=== PATIENT | male | born 1950 | race Caucasian/White ===

== ENCOUNTER → 2016-07-22 | Outpatient (CLI) | payer BC ==
[~2016-07-22] MED LIST: ALLO300T2 PO; ASPI81TA28 PO; BNC/40 PO; BUSP5TAB59 PO; CHOL100010 PO; CHOL200010 PO; CODCAP4 PO; CYAN100020 PO; CYAN10004 PO; FLUO10CA48 PO; FLUT0.0529 NAE; GABA-113 PO; GINKOBA PO; GLC/500 PO; GLUC15002 PO; GLUCTAB7 PO; HMLI SC; HYDR-5688 PO; HYDR12.55 PO; HYDR25TA4 PO; INSUINJ12 SC; IRBE1TAB48 PO; LEVO200T6 PO; LEVO50TA6 PO; LIRA18IN SC; LIRA18IN SQ; LVMI SC; MAGN400T6 PO; MISC1CAP60 PO; MULT-1027 PO; MULTTAB58 PO; NVLGI/PEN SC; OMEP40CA PO; OMEP40CA41 PO; ONDA8TAB7 PO; RANI300T PO; S AD PO; SIMV20TA2 PO; VGR50 PO; VITA1CAP PO; VITA400C3 PO; [UNRECOGNIZED DRUG - CODE] PO
[2016-07-22 12:34] LABS: URINE APPEARANCE CLEAR (CLEAR); URINE BILIRUBIN NEG (NEG); URINE COLOR YELLOW; URINE EPITHELIAL CELL AUTO 0-5 /lpf (0-5); URINE NITRITE NEG (NEG); URINE SPECIFIC GRAVITY 1.019 (1.000-1.030); UROBILINOGEN NEG (NEG); ZZUR CULT IF INDIC CLEAN CATCH NO
[2016-07-22 12:40] LABS: BLOOD UREA NITROGEN 29 mg/dl (7-18); BUN/CREATININE RATIO 20.5 (10-20); CALCIUM 9.2 mg/dl (8.5-10.1); CARBON DIOXIDE 25 mmol/L (21-32); CHLORIDE 104 mmol/L (98-107); GLUCOSE 167 mg/dl (70-99); POTASSIUM 4.3 mmol/L (3.5-5.1); SODIUM 139 mmol/L (136-145)
[2016-07-22 12:44] LABS: MANUAL MICROSCOPIC REQUIRED? NO; REVIEW REQ? NO
[2016-07-22 12:45] LABS: CHOLESTEROL 160 mg/dl (0-200); CHOLESTEROL/HDL RATIO 3.4; HDL CHOLESTEROL 47 mg/dl; LDL CHOLESTEROL CALCULATED 76 mg/dl; TRIGLYCERIDES 184 mg/dl (0-150); VERY LOW DENSITY LIPOPROT CALC 37 mg/dl
[2016-07-22 12:54] LABS: ESTIMATED AVERAGE GLUCOSE 174 mg/dl; HA1C FLAG Normal (Normal)
== END | disposition home or self-care (01) ==
LOC: C.LABBFT 08:38
PROVIDERS: ATTEND Internal Medicine
DX: E11.9 Type 2 diabetes mellitus without complications (principal); E55.9 Vitamin D deficiency, unspecified

== ENCOUNTER → 2016-09-27 | Outpatient (CLI) | payer BC ==
[~2016-09-27] MED LIST changes: -CHOL200010 PO; +CODCAP PO; -CODCAP4 PO; -CYAN100020 PO; -FLUO10CA48 PO; -GINKOBA PO; -GLUCTAB7 PO; -HYDR25TA4 PO; -IRBE1TAB48 PO; -LEVO200T6 PO; -LIRA18IN SC; -LVMI SC; -MAGN400T6 PO; -MISC1CAP60 PO; -MULT-1027 PO; -NVLGI/PEN SC; -OMEP40CA41 PO; -S AD PO; -[UNRECOGNIZED DRUG - CODE] PO
[2016-09-27 13:10] LABS: THYROID STIMULATING HORMONE 3.63 uIu/ml (0.300-4.500)
== END | disposition home or self-care (01) ==
LOC: C.LABBFT 09:44
PROVIDERS: ATTEND Internal Medicine Endocrinology, Diabetes & Metabolism
DX: E03.9 Hypothyroidism, unspecified (principal)

== ENCOUNTER → 2016-11-29 | Outpatient (CLI) | payer BC ==
[~2016-11-29] MED LIST changes: +CHOL200010 PO; -CODCAP PO; +CODCAP4 PO; +CYAN100020 PO; +FLUO10CA48 PO; +GINKOBA PO; +GLUCTAB7 PO; +HYDR25TA4 PO; +IRBE1TAB48 PO; +LEVO200T6 PO; +LIRA18IN SC; +LVMI SC; +MAGN400T6 PO; +MISC1CAP60 PO; +MULT-1027 PO; +NVLGI/PEN SC; +OMEP40CA41 PO; +S AD PO; +[UNRECOGNIZED DRUG - CODE] PO
[2016-11-29 12:35] LABS: THYROID STIMULATING HORMONE 0.56 uIu/ml (0.300-4.500)
== END | disposition home or self-care (01) ==
LOC: C.LABBFT 09:16
PROVIDERS: ATTEND Internal Medicine Endocrinology, Diabetes & Metabolism
DX: E03.9 Hypothyroidism, unspecified (principal)

== ENCOUNTER → 2016-12-14 | Outpatient (CLI) | payer BC | END | disposition home or self-care (01) | LOC: C.CPL 14:42 | PROVIDERS: ATTEND Surgery | DX: Z01.812 Encounter for preprocedural laboratory examination (principal); C85.80 Other specified types of non-Hodgkin lymphoma, unspecified site ==

== ENCOUNTER → 2016-12-15 | Outpatient (CLI) | payer BC ==
[2016-12-15 12:25] LABS: BASO % 0.6 %; BASO ABS # 0.03 K/uL (0-0.2); COMPLETE YES; EOS % 3.7 %; HEMATOCRIT 36.6 % (42-52); IG% 0.2 %; LYMPH % 18.3 %; LYMPH ABS # 0.99 K/uL (1.2-3.4); MEAN CELL VOLUME 98.9 fL (80-100); MEAN CORPUSCULAR HEMOGLOBIN 32.2 pg (25-34); MEAN CORPUSCULAR HGB CONC 32.5 g/dl (32-36); MEAN PLATELET VOLUME 9.9 fL (7.4-10.4); MONO % 8.9 %; NEUT % 68.3 %; PLATELET COUNT 190 K/uL (130-400); WHITE BLOOD COUNT 5.41 K/uL (4.8-10.8)
[2016-12-15 12:31] LABS: ALT/SGPT 58 U/L (12-78); AST/SGOT 48 U/L (15-37); BLOOD UREA NITROGEN 28 mg/dl (7-18); CARBON DIOXIDE 25 mmol/L (21-32); CHLORIDE 105 mmol/L (98-107); GLUCOSE 160 mg/dl (70-99); POTASSIUM 4.3 mmol/L (3.5-5.1); SODIUM 140 mmol/L (136-145)
[2016-12-15 12:32] LABS: ALB/GLOB RATIO 0.8 (0.9-2); ALKALINE PHOSPHATASE 72 U/L (45-117)
[2016-12-15 12:40] LABS: CALCIUM 9.3 mg/dl (8.5-10.1)
[2016-12-15 12:41] LABS: ESTIMATED AVERAGE GLUCOSE 183 mg/dl; HA1C FLAG Normal (Normal)
== END | disposition home or self-care (01) ==
LOC: C.LABBFT 08:43
PROVIDERS: ATTEND Internal Medicine
DX: E11.9 Type 2 diabetes mellitus without complications (principal); E55.9 Vitamin D deficiency, unspecified

== ENCOUNTER → 2016-12-16 | Outpatient (CLI) | payer BC ==
[2016-12-16 17:39] LABS: FERRITIN 68.4 ng/ml (8.0-388.0)
== END | disposition home or self-care (01) ==
LOC: C.LABBFT 15:20
PROVIDERS: ATTEND Internal Medicine
DX: D64.9 Anemia, unspecified (principal)

== ENCOUNTER → 2016-12-29 | Day surgery (SDC) | payer BC ==
[2016-12-17 08:31] VITALS: BMI 41.0
[~2016-12-29] VITALS: Ht 185.4 cm; Wt 143.6 kg
[~2016-12-29] MED LIST changes: +ATROPINE SULFATE 0.1 MG/ML 5ML SYR IV PRN; +CEFAZOLIN 3000 MG/65 ML D5W IV SCH; +CEFAZOLIN SOD 1 GM VIAL ONE; -CYAN10004 PO; +EpHEDrine SULFATE INJ 50 MG/ML AMP IV PRN; +FENTANYL CITRATE INJ 50 MCG/1 ML 2 ML VIAL ONE; -GLUC15002 PO; +HEPARIN SOD (PORCINE) 1000 UNIT/ML 10 ML VIAL ONE; +HYDROCODONE/ACETAMOPHEN 5/325MG TAB PO PRN; +LACTATED RINGER'S 1000ML 1,000 ML IV SCH; +LIDOCAINE HCL 1% 20 ML VIAL ONE; +MIDAZOLAM HCL 1 MG/ML 2ML VIAL ONE; -ONDA8TAB7 PO; +ONDANSETRON INJ 2 MG/ML 2 ML VIAL IV PRN; +PROPOFOL IV EMULSION 10 MG/ML 20 ML VIAL IV ONE; -RANI300T PO; +THROMBIN FOR SOLN 20000 UNIT KIT ONE; -VGR50 PO; -VITA1CAP PO
[2016-12-29 07:19] VITALS: BP 142/70; PULSE 71; TEMP 36.5; O2SAT 92; Ht 185.4 cm; Wt 143.6 kg
--- NOTE | 2016-12-29 08:57 | History & Physical Bridge Note ---
H&P Re-Evaluation Bridge Note: I have examined the patient, reviewed the History & Physical and in the interval since the performance of the History & Physical I have noted the following changes of clinical significance: No changes noted
--- NOTE | 2016-12-29 09:38 | [facility] Post Operative Brief Note ---
Immediate Operative Summary Operative Date Dec 29, 2016. Pre-Operative Diagnosis Indwelling Infusaport Post-Operative Diagnosis Indwelling infusaport Procedure(s) Performed Removal of A port Surgeon Dr. De Oliveira Oceanographer Assistant Surgeon(s) none Estimated Blood Loss 5 cc Findings port Specimens A: explanted A port Anesthesia local/ sedation Complication(s) None Disposition Recovery Room / PACU
--- NOTE | 2016-12-29 09:43 | Discharge Instructions ---
Discharge Instructions Date of Service Dec 29, 2016. Visit Reason for Visit: Port-A-Cath In Place, Diabetes Discharge Discharge Diagnosis / Problem: port in place Discharge Goals Goal(s): Decrease discomfort, Improve function, Improve disease control Activity Recommendations Activity Limitations: as noted below Lifting Limitations: no more than 25 pounds Exercise/Sports Limitations: until after follow-up appointment May Resume Sexual Activity: when tolerated Shower/Bathe: tomorrow Driving or Machine Use: resume 1 day after discharge SPECIAL CARE INSTRUCTIONS: * Cover incisions and change daily for comfort/drainage. * May use ibuprofen for pain as tolerated. * Expect some swelling and bruising. Call your doctor if: * Temperature above 101 degrees * Pain not relieved by pain medicine ordered * There is increased drainage or redness from any incision * You have any unanswered questions or concerns [phone]. FOLLOW UP VISIT: If not already scheduled, please call the office for a follow-up visit. for 2 weeks- suture removal OFFICE PHONE NUMBER: Dr. De Oliveira Office Anesthesia . Post Anesthesia Instructions: If you have had General Anesthesia or IV Sedation: * Do not drive today. * Resume driving when surgeon permits. * Do not make important decisions or sign legal documents today. * Call surgeon for: 1. Temperature elevations greater than 101 degrees F. 2. Uncontrollable pain. 3. Excessive bleeding. 4. Persistent nausea and vomiting. 5. Medication intolerance (nausea, vomiting or rash). * For nausea and vomiting use only clear liquids such as: tea, soda, bouillon until nausea subsides, then gradually increase diet as tolerated. * If you have any concerns or questions, call your surgeon's office. If physician is unavailable and it is an emergency, call 911 or go to the nearest emergency room. . Diet Recommendations Recommended Home Diet: resume previous diet Procedures Procedures Performed: Removal of A port Pending Studies Studies pending at discharge: no Medical Emergencies . Who to Call and When: Medical Emergencies: If at any time you feel your situation is an emergency, please call 911 immediately. . Non-Emergent Contact Non-Emergency issues call your: Primary Care Provider, Surgeon . . "Provider Documentation" section prepared by Jerzy De Oliveira. .
--- NOTE | 2016-12-29 09:44 | Anesthesiology Progress Note ---
Anesthesia Post Op Note Date & Time Dec 29, 2016 at 09:44 Vital Signs Pain Intensity: 0 Vital Signs Past 12 Hours Date Time Temp Pulse Resp B/P (MAP) Pulse Ox O2 Delivery O2 Flow Rate FiO2 12/29/16 07:19 36.5 71 20 142/70 (94) 92 Room Air Notes Mental Status: alert / awake / arousable, participated in evaluation Pt Amnestic to Procedure: Yes Nausea / Vomiting: adequately controlled Pain: adequately controlled Airway Patency, RR, SpO2: stable & adequate BP & HR: stable & adequate Hydration State: stable & adequate Anesthetic Complications: no major complications apparent
[2016-12-29 10:00] VITALS: BP 139/67; PULSE 70; TEMP 36.8; O2SAT 98
--- NOTE | 2016-12-29 10:13 | OPERATIVE REPORT ---
DATE OF OPERATION: 12/29/2016 PREOPERATIVE DIAGNOSIS: Port in place. POSTOPERATIVE DIAGNOSIS: Same. NAME OF OPERATION: Port removal. STAFF SURGEON: Dr. De Oliveira. ANESTHESIA: Local with sedation with 1% plain lidocaine. PROCEDURE: The patient was brought in the operating room and placed on the operating table in supine position. His left chest was prepped and draped in usual fashion. 1% plain lidocaine was used to anesthetize the skin and subcutaneous tissue. Incision made carrying dissection down identifying the port, dissecting it from surrounding tissue, removing the catheter, oversewing the tunnel using 2-0 chromic catgut suture. Deep tissue and subcutaneous tissue reapproximated using interrupted 2-0 plain catgut suture then the skin reapproximated using 4-0 nylon suture. The patient was transferred to recovery room in stable condition. I attest to the content of the Intraoperative Record and any orders documented therein. Any exception s are noted below.
[2016-12-29 10:30] VITALS: BP 135/67; PULSE 72; TEMP 36.8; O2SAT 98
== END | disposition home or self-care (01) ==
LOC: C.ACU 06:54
PROVIDERS: ATTEND Surgery
DX: Z45.2 Encounter for adjustment and management of vascular access device (principal); E11.22 Type 2 diabetes mellitus with diabetic chronic kidney disease; I12.9 Hypertensive chronic kidney disease with stage 1 through stage 4 chronic kidney disease, or unspecified chronic kidney disease; G47.33 Obstructive sleep apnea (adult) (pediatric); M19.90 Unspecified osteoarthritis, unspecified site; E66.01 Morbid (severe) obesity due to excess calories; Z68.41 Body mass index [BMI] 40.0-44.9, adult; E78.5 Hyperlipidemia, unspecified; Z98.890 Other specified postprocedural states; Z79.4 Long term (current) use of insulin; Z79.899 Other long term (current) drug therapy; Z82.49 Family history of ischemic heart disease and other diseases of the circulatory system; Z83.3 Family history of diabetes mellitus; Z81.8 Family history of other mental and behavioral disorders; N18.9 Chronic kidney disease, unspecified

== ENCOUNTER → 2017-02-23 | Outpatient (CLI) | payer BC ==
[~2017-02-23] MED LIST changes: -ATROPINE SULFATE 0.1 MG/ML 5ML SYR IV PRN; -CEFAZOLIN 3000 MG/65 ML D5W IV SCH; -CEFAZOLIN SOD 1 GM VIAL ONE; -CHOL200010 PO; +CODCAP PO; -CODCAP4 PO; -CYAN100020 PO; -EpHEDrine SULFATE INJ 50 MG/ML AMP IV PRN; -FENTANYL CITRATE INJ 50 MCG/1 ML 2 ML VIAL ONE; -FLUO10CA48 PO; -GINKOBA PO; -GLUCTAB7 PO; -HEPARIN SOD (PORCINE) 1000 UNIT/ML 10 ML VIAL ONE; -HYDR25TA4 PO; -HYDROCODONE/ACETAMOPHEN 5/325MG TAB PO PRN; -IRBE1TAB48 PO; -LACTATED RINGER'S 1000ML 1,000 ML IV SCH; -LEVO200T6 PO; -LIDOCAINE HCL 1% 20 ML VIAL ONE; -LIRA18IN SC; -LVMI SC; -MAGN400T6 PO; -MIDAZOLAM HCL 1 MG/ML 2ML VIAL ONE; -MISC1CAP60 PO; -MULT-1027 PO; -NVLGI/PEN SC; -OMEP40CA41 PO; -ONDANSETRON INJ 2 MG/ML 2 ML VIAL IV PRN; -PROPOFOL IV EMULSION 10 MG/ML 20 ML VIAL IV ONE; -S AD PO; -THROMBIN FOR SOLN 20000 UNIT KIT ONE; -[UNRECOGNIZED DRUG - CODE] PO
--- NOTE | 2017-02-23 08:58 | DIAGNOSTIC IMAGING REPORT ---
THYROID ULTRASOUND HISTORY: Thyroid nodule. E11.65 Diabetes mellitus type 2, [id number] COMPARISON: Thyroid ultrasound 03/16/2016. FINDINGS: Right lobe: 4.1 x 2.0 x 1.9 cm. No nodules. The gland is diffusely heterogeneous. Left lobe: 3.8 x 2.7 1.5 cm. No definite nodules identified. The gland is diffusely heterogeneous. Isthmus: 4 mm in thickness. No nodules. IMPRESSION: Diffusely heterogeneous thyroid gland with no definite nodules identified. Electronically signed by: Lucas Montez M.D. 02/23/2017 8:56 AM Dictated Date/Time: 02/23/2017 8:54 AM
== END | disposition home or self-care (01) ==
LOC: C.ULTR 07:45
PROVIDERS: ATTEND Internal Medicine Endocrinology, Diabetes & Metabolism
DX: E11.65 Type 2 diabetes mellitus with hyperglycemia (principal); E07.9 Disorder of thyroid, unspecified

== ENCOUNTER → 2017-04-11 | Outpatient (CLI) | payer BC ==
[2017-04-11 12:24] LABS: BASO % 0.5 %; BASO ABS # 0.03 K/uL (0-0.2); COMPLETE YES; EOS % 2.6 %; HEMATOCRIT 35.2 % (42-52); IG% 0.2 %; LYMPH % 15.7 %; LYMPH ABS # 0.97 K/uL (1.2-3.4); MEAN CELL VOLUME 98.3 fL (80-100); MEAN CORPUSCULAR HEMOGLOBIN 32.7 pg (25-34); MEAN CORPUSCULAR HGB CONC 33.2 g/dl (32-36); MEAN PLATELET VOLUME 10.1 fL (7.4-10.4); MONO % 11.9 %; NEUT % 69.1 %; PLATELET COUNT 169 K/uL (130-400); RED BLOOD COUNT 3.58 M/uL (4.7-6.1); WHITE BLOOD COUNT 6.16 K/uL (4.8-10.8)
[2017-04-11 12:31] LABS: ALT/SGPT 57 U/L (12-78); BLOOD UREA NITROGEN 31 mg/dl (7-18); BUN/CREATININE RATIO 23.8 (10-20); CALCIUM 9.9 mg/dl (8.5-10.1); CARBON DIOXIDE 26 mmol/L (21-32); CHLORIDE 103 mmol/L (98-107); GLUCOSE 114 mg/dl (70-99); POTASSIUM 4.8 mmol/L (3.5-5.1); SODIUM 138 mmol/L (136-145)
[2017-04-11 12:33] LABS: ALKALINE PHOSPHATASE 69 U/L (45-117); AST/SGOT 46 U/L (15-37)
[2017-04-11 12:39] LABS: ESTIMATED AVERAGE GLUCOSE 146 mg/dl; HA1C FLAG Normal (Normal)
== END | disposition home or self-care (01) ==
LOC: C.LABBFT 08:16
PROVIDERS: ATTEND Internal Medicine
DX: E11.9 Type 2 diabetes mellitus without complications (principal); D64.9 Anemia, unspecified

== ENCOUNTER → 2017-04-19 | Outpatient (CLI) | payer BC ==
[2017-04-19 17:56] LABS: MAGNESIUM 1.8 mg/dl (1.8-2.4); URIC ACID 5.9 mg/dl (2.6-7.2)
== END | disposition home or self-care (01) ==
LOC: C.LABBFT 14:21
PROVIDERS: ATTEND Internal Medicine
DX: C85.80 Other specified types of non-Hodgkin lymphoma, unspecified site (principal); M10.9 Gout, unspecified

== ENCOUNTER → 2017-04-27 | Outpatient (CLI) | payer BC ==
[~2017-04-27] MED LIST changes: +OPTIRAY 320 IV PRN
--- NOTE | 2017-04-27 12:11 | DIAGNOSTIC IMAGING REPORT ---
CHEST CT WITH CONTRAST CT DOSE: HISTORY: NON HODGKINS LYMPHOMA TECHNIQUE: Multiaxial CT images of the chest were performed following the intravenous administration of contrast. A dose lowering technique was utilized adhering to the principles of ALARA. COMPARISON: Chest CT 12/28/2014. FINDINGS: There is a 1.8 cm diverticulum along the right side of the proximal esophagus. The central airways are patent. No pneumothorax. No pleural effusions. No focal lung consolidations. A 7 mm subpleural nodule within the right lower lobe abutting the major fissure on image 29. This was likely present on the prior study but was partially obscured by the motion artifact. This appears stable and is therefore considered to be benign. There is also stable 2 mm pulmonary nodule within the right upper lobe on image 32 compared to a 2014 PET/CT. No new or suspicious pulmonary nodules. No suspicious lytic or blastic osseous lesions. A few stable subcentimeter mediastinal lymph nodes. These do not meet CT criteria for pathologic involvement. No hilar or axillary lymphadenopathy. Subcentimeter right cardiophrenic angle lymph nodes are also stable. Normal caliber thoracic aorta. The main pulmonary arteries are patent. The heart remains mildly enlarged. IMPRESSION: No significant change compared to the prior studies. No lymphadenopathy identified within the chest. Electronically signed by: Lucas Montez M.D. 04/27/2017 12:10 PM Dictated Date/Time: 04/27/2017 12:03 PM
--- NOTE | 2017-04-27 12:14 | DIAGNOSTIC IMAGING REPORT ---
CT SCAN OF THE NECK WITH IV CONTRAST CLINICAL HISTORY: Lymphoma. COMPARISON STUDY: CT scan of the neck dated 04/28/2013. PET/CT dated 06/03/2014. TECHNIQUE: Following the IV administration of 93 cc of Optiray 320, CT scan of the soft tissues of the neck was performed from the skull base to the upper chest. Images are reviewed in the axial, sagittal, and coronal planes. IV contrast was administered without complication. A dose lowering technique was utilized adhering to the principles of ALARA. FINDINGS: Pharynx: The nasopharynx, oropharynx, and laryngeal pharynx are normal in appearance. The pharyngeal airway is widely patent. There is no evidence of mass lesion. The vocal cords are symmetric. The parapharyngeal fat is well maintained. The prevertebral/retropharyngeal soft tissues are within normal limits. Lymphadenopathy: No cervical lymphadenopathy is seen Thyroid: Normal in size and attenuation. Salivary glands: The parotid and submandibular glands are within normal limits. Brain parenchyma: The visualized brain parenchyma at the skull base is normal in appearance. Vascular structures: There is atherosclerotic calcification of the carotid bulbs. The carotid arteries and the jugular veins are widely patent. Skeletal structures: The skeletal structures are osteopenic. Imaged portions of the calvarium at the skull base are within normal limits. Moderate multilevel cervical spondylosis is observed. The cervical spine appears intact. Sinuses and mastoids: The visualized paranasal sinuses are clear. The mastoid air cells are well pneumatized. Orbits: The bony orbits are intact. Orbital contents are normal in appearance. Lung apices: Visualized apical lung parenchyma is clear. IMPRESSION: No cervical lymphadenopathy is identified. Electronically signed by: Randy Brown M.D. 04/27/2017 12:13 PM Dictated Date/Time: 04/27/2017 12:09 PM
--- NOTE | 2017-04-27 12:18 | DIAGNOSTIC IMAGING REPORT ---
ABD/PELVIS IV AND ORAL CONT CLINICAL HISTORY: 66 years-old Male presenting with NON HODGKINS LYMPHOMA. TECHNIQUE: Multidetector CT of the abdomen and pelvis was performed after the administration of oral and intravenous contrast. IV contrast: 93 mL of Optiray 320. A dose lowering technique was used consistent with the principles of ALARA (as low as reasonably achievable). COMPARISON: PET/CT from 04/02/2013. CT DOSE (mGy.cm): The estimated cumulative dose is 3152.63 mGy.cm. FINDINGS: Expenditure Requisition Clerk topogram: Unremarkable. Lung bases: Minimal dependent changes likely atelectasis. Mild multichamber enlargement of the heart. Coronary artery and aortic valve calcification. No pericardial or pleural effusion. Prominent pericardial lymph node at the right cardiophrenic angle. Liver: Normal morphology. No liver lesion. Patent hepatic vasculature. Biliary: No intrahepatic or extrahepatic biliary ductal dilatation. Normal gallbladder. Pancreas: Moderate parenchymal atrophy. Spleen: Mildly enlarged measuring 15.2 cm in maximal sagittal dimension. This is new since 2012. Adrenal glands: Normal. Kidneys and ureters: Normal. No hydronephrosis. Bladder: Incompletely evaluated secondary to underdistention. Pelvic organs: Prostate and seminal vesicles normal. Bowel: Limited diverticulosis of the sigmoid colon. Mild stool burden. Normal appendix. No bowel obstruction. No bowel wall thickening. Peritoneal cavity: No free fluid or intraperitoneal gas. Lymph nodes: No pathologically enlarged lymph nodes in the abdomen or pelvis. Vasculature: Atherosclerosis of the normal caliber abdominal aorta. IVC patent. Abdominal wall: Normal. Musculoskeletal: Degenerative changes of the spine. Possible old right anterior through eighth rib fracture. No destructive osseous lesion. IMPRESSION: 1. No intra-abdominal lymphadenopathy. Mild splenomegaly is new since 2012. No other evidence of disease in the abdomen or pelvis. Electronically signed by: Henri Adam M.D. 04/27/2017 12:17 PM Dictated Date/Time: 04/27/2017 12:10 PM
== END | disposition home or self-care (01) ==
LOC: C.CTS 11:20
PROVIDERS: ATTEND Nurse Practitioner Family
DX: C83.31 Diffuse large B-cell lymphoma, lymph nodes of head, face, and neck (principal)

== ENCOUNTER → 2017-06-03 | Outpatient (CLI) | payer BC ==
[~2017-06-03] MED LIST changes: -BNC/40 PO; -BUSP5TAB59 PO; -CHOL100010 PO; +CHOL200010 PO; -CODCAP PO; +CODCAP4 PO; +CYAN100020 PO; +FLUO10CA48 PO; -FLUT0.0529 NAE; +GINKOBA PO; +GLUCTAB7 PO; -HMLI SC; -HYDR12.55 PO; +HYDR25TA4 PO; -INSUINJ12 SC; +IRBE1TAB48 PO; +LEVO200T6 PO; +LIRA18IN SC; -LIRA18IN SQ; +LVMI SC; +MAGN400T6 PO; +MISC1CAP60 PO; +MULT-1027 PO; -MULTTAB58 PO; +NVLGI/PEN SC; -OMEP40CA PO; +OMEP40CA41 PO; -OPTIRAY 320 IV PRN; +S AD PO; +[UNRECOGNIZED DRUG - CODE] PO
[2017-06-03 12:33] LABS: THYROID STIMULATING HORMONE 0.188 uIu/ml (0.300-4.500)
== END | disposition home or self-care (01) ==
LOC: C.LABBFT 09:45
PROVIDERS: ATTEND Nurse Practitioner
DX: E03.9 Hypothyroidism, unspecified (principal)

== ENCOUNTER → 2017-06-15 | Day surgery (SDC) | payer BC ==
[2017-06-02 11:56] VITALS: BMI 40.0
[~2017-06-15] VITALS: Ht 185.4 cm; Wt 140.0 kg
[~2017-06-15] MED LIST changes: +FENTANYL CITRATE INJ 50 MCG/1 ML 2 ML VIAL ONE; +LIDOCAINE HCL 2% 2 ML VIAL (20MG/ML) ONE; +PROPOFOL IV EMULSION 10 MG/ML 20 ML VIAL IV ONE; +SODIUM CHLORIDE 0.9% 500ML 500 ML IV ONE
[2017-06-15 08:35] VITALS: Ht 185.4 cm; Wt 140.0 kg
--- NOTE | 2017-06-15 08:49 | Endo History and Physical ---
History & Physical Date of Service: Jun 15, 2017. Chief Complaint: DYSPHAGIA Referring Physician: DR. TOMLIN History of Present Illness 66 yo CM who presents for EGD secondary to dysphagia. Past Medical History Diabetes, Arthritis, Anxiety, Reflux, Sleep Apnea, Hypertension, Thyroid Disease Past Surgical History Hx Cardiac Surgery: No Hx Internal Defibrillator: No Hx Pacemaker: No Hx Abdominal Surgery: No Hx of Implantable Prosthesis: No Hx Post-Op Nausea and Vomiting: No Hx Cancer Surgery: Yes (FACE SKIN EXICISION) Hx Thoracic Surgery: No Hx Orthopedic: Yes (RT/LEFT KNEE SX, RT ARM MUSCLE REPAIR) Hx Urinary Tract Surgery: No Family History None Social History Smoking Status: Never Smoker Hx Substance Use: No Hx Alcohol Use: No Allergies Coded Allergies: Niacin (Verified Allergy, Unknown, ULCERS, 06/15/17) Current Medications Reported Home Medications Medications Dose Route/Sig Max Daily Dose Days Date Category Dose Instructions Vitamin D (Cholecalciferol) 2,000 Unit Cap 2 Cap PO DAILY 06/02/17 Reported Zocor (Simvastatin) 20 Mg Tab 20 Mg PO QPM 06/02/17 Reported [place] (Misc Natural Products) 1 Cap Cap 1 Cap PO DAILY 06/02/17 Reported Junior-E (S-Adenosylmethionine) 200 Mg Tab 4 Tab PO DAILY 06/02/17 Reported Prilosec (Omeprazole) 40 Mg Cap 40 Mg PO QAM 06/02/17 Reported Novolog Flexpen (Insulin Aspart) 100 Units/Ml Inj 1 Dose SC TID 06/02/17 Reported PER SLIDING SCALE. Multi Vitamin (Multiple Vitamin) 1 Tab Tab 1 Tab PO DAILY 06/02/17 Reported Glucophage (Metformin Hcl) 500 Mg Tab 2 Tab PO BID 06/02/17 Reported Mag-Ox (Magnesium Oxide) 400 Mg Tab 2 Cap PO DAILY 06/02/17 Reported Levothyroxine Sodium 200 Mcg Tab 1 Tab PO QAM 06/02/17 Reported Levothyroxine Sodium 50 Mcg Tab 1 Tab PO QAM 06/02/17 Reported Levemir (Insulin Detemir) 100 Units/Ml Inj 100 Unit SC BID 06/02/17 Reported Irbesartan 150 Mg Tab 1 Tab PO QAM 06/02/17 Reported Hctz (Hydrochlorothiazide) 25 Mg Tab 0.5 Tab PO QAM 06/02/17 Reported Green Tea Extract (Green Tea (Camillia Sinensis)) 90 % Liq 1 Dose PO DIRECTED 06/02/17 Reported Glucosamine Chondroitin (Qamqevfrxeo-Jivnbfvrjlf-Pgp C-) 1 Tab Tab 1 Tab PO DAILY 06/02/17 Reported [Ginkoba] 60 Mg PO DAILY 06/02/17 Reported Neurontin (Gabapentin) 300 Mg Cap 300 Mg PO TID 06/02/17 Reported Prozac (Fluoxetine HCl) 10 Mg Cap 10 Mg PO QAM 06/02/17 Reported Cod Liver Oil 1 Cap Cap 3 Mg PO DAILY 06/02/17 Reported Vitamin B12 (Cyanocobalamin) 1,000 Mcg Tab 1 Tab PO DAILY 06/02/17 Reported Victoza (Liraglutide) 18 Mg/3 Ml Inj 1.8 Mg SC QAM 06/02/17 Reported [place] 5MG/325MG (Acetaminophen/Hydrocodone Bitart) Tab 1-2 Tablet PO Q 6 HRS PRN 12/29/16 Rx PRN PAIN Aspirin Ec (Aspirin) 81 Mg Tab 81 Mg PO QAM 04/28/13 Reported Zyloprim (Allopurinol) 300 Mg Tab 300 Mg PO QAM 04/28/13 Reported Vitamin E 400 Iu (Vitamin E) 400 Unit Cap 400 Inter.unit PO DAILY 06/02/17 Reported Vital Signs Weight (Kilograms): 140.00 Height (Feet): 6 Height (Inches): 1 Date Time Temp Pulse Resp B/P (MAP) Pulse Ox O2 Delivery O2 Flow Rate FiO2 06/15/17 08:37 36.3 66 24 145/68 (93) 95 Room Air Physical Exam General Appearance: WD/WN, no apparent distress Respiratory/Chest: Auscultation: breath sounds normal Cardiovascular: Heart Auscultation: RRR Abdomen: Bowel Sounds: normal Inspection & Palpation: soft, non-distended, no tenderness, guarding & rebound Assessment and Plan Assessment: 66 yo CM who presents for EGD secondary to dysphagia. Plan: Proceed with EGD
--- NOTE | 2017-06-15 09:06 | Discharge Instructions ---
Endoscopy Patient Instructions Date / Procedure(s) Performed Jun 15, 2017. EGD Allergy Information Coded Allergies: Niacin (Verified Allergy, Unknown, ULCERS, 06/15/17) Discharge Date / Findings Jun 15, 2017. Gastritis s/p biopsies Distal esophageal biopsies Medication Instructions Stopped Medication(s): ALL EXCEPT SYNTHROID PAIN PILLS AND BLOOD PRESSURE OK to resume all medications today as prescribed Reported Home Medications Medications Dose Route/Sig Max Daily Dose Days Date Category Dose Instructions Vitamin D (Cholecalciferol) 2,000 Unit Cap 2 Cap PO DAILY 06/02/17 Reported Zocor (Simvastatin) 20 Mg Tab 20 Mg PO QPM 06/02/17 Reported Saw [place] (Misc Natural Products) 1 Cap Cap 1 Cap PO DAILY 06/02/17 Reported Junior-E (S-Adenosylmethionine) 200 Mg Tab 4 Tab PO DAILY 06/02/17 Reported Prilosec (Omeprazole) 40 Mg Cap 40 Mg PO QAM 06/02/17 Reported Novolog Flexpen (Insulin Aspart) 100 Units/Ml Inj 1 Dose SC TID 06/02/17 Reported PER SLIDING SCALE. Multi Vitamin (Multiple Vitamin) 1 Tab Tab 1 Tab PO DAILY 06/02/17 Reported Glucophage (Metformin Hcl) 500 Mg Tab 2 Tab PO BID 06/02/17 Reported Mag-Ox (Magnesium Oxide) 400 Mg Tab 2 Cap PO DAILY 06/02/17 Reported Levothyroxine Sodium 200 Mcg Tab 1 Tab PO QAM 06/02/17 Reported Levothyroxine Sodium 50 Mcg Tab 1 Tab PO QAM 06/02/17 Reported Levemir (Insulin Detemir) 100 Units/Ml Inj 100 Unit SC BID 06/02/17 Reported Irbesartan 150 Mg Tab 1 Tab PO QAM 06/02/17 Reported Hctz (Hydrochlorothiazide) 25 Mg Tab 0.5 Tab PO QAM 06/02/17 Reported Green Tea Extract (Green Tea (Camillia Sinensis)) 90 % Liq 1 Dose PO DIRECTED 06/02/17 Reported Glucosamine Chondroitin (Gzrkxkajncv-Jomeswahavl-Krc C-) 1 Tab Tab 1 Tab PO DAILY 06/02/17 Reported [Ginkoba] 60 Mg PO DAILY 06/02/17 Reported Neurontin (Gabapentin) 300 Mg Cap 300 Mg PO TID 06/02/17 Reported Prozac (Fluoxetine HCl) 10 Mg Cap 10 Mg PO QAM 06/02/17 Reported Cod Liver Oil 1 Cap Cap 3 Mg PO DAILY 06/02/17 Reported Vitamin B12 (Cyanocobalamin) 1,000 Mcg Tab 1 Tab PO DAILY 06/02/17 Reported Victoza (Liraglutide) 18 Mg/3 Ml Inj 1.8 Mg SC QAM 06/02/17 Reported [place] 5MG/325MG (Acetaminophen/Hydrocodone Bitart) Tab 1-2 Tablet PO Q 6 HRS PRN 12/29/16 Rx PRN PAIN Aspirin Ec (Aspirin) 81 Mg Tab 81 Mg PO QAM 04/28/13 Reported Zyloprim (Allopurinol) 300 Mg Tab 300 Mg PO QAM 04/28/13 Reported Vitamin E 400 Iu (Vitamin E) 400 Unit Cap 400 Inter.unit PO DAILY 06/02/17 Reported Provider Instructions Activity Restrictions - No exercising or heavy lifting for 24 hours. - Do not drink alcohol the day of the procedure. - Do not drive a car or operate machinery until the day after the procedure. - Do not make any important decisions or sign important papers in 24 hours after the procedure. Following Day: - Return to full activity which may include returning to work/school. Diet Start your diet with liquids and light foods (jello, soup, juice, toast). Then eat your usual diet if not nauseated. Treatment For Common After Affects For mild abdominal pain, bloating, or excessive gas: - Rest - Eat lightly - Lie on right side Follow-Up Information Follow-up with DR. TOMLIN as scheduled Anesthesia Information What You Should Know You have had a procedure that required some medicine to reduce anxiety and discomfort. This treatment is called moderate sedation. After receiving the treatment, you may be sleepy, but you will be able to breathe on your own. The effects of the treatment may last for several hours. Follow these instructions along with Activity/Diet recommendations noted above: * Do NOT do anything where dizziness or clumsiness would be dangerous. * Rest quietly at home today, then you can be up and about tomorrow. * Have a responsible person stay with you the rest of today. * You may have had an I.V. today. If so, you may take the dressing off later today. Recommendations Call your doctor if: * Trouble breathing * Continuous vomiting for more than 24 hours * Temperature above 101 degrees * Severe abdominal pain or bloating * Pain not relieved by pain medicine ordered * There is increased drainage or redness from any incision * A large amount of rectal bleeding greater than 2-3 tablespoons. (If you had a polyp/s removed or have hemorrhoids, a small amount of blood - from the rectum is to be expected.) * You have any unanswered questions or concerns. IN THE EVENT OF A SERIOUS EMERGENCY, GO TO THE NEAREST EMERGENCY ROOM Your discharge instructions were prepared by provider Julio Cesar Tavera. Patient Instructions Signature Page Paul Urbina Patient (or Guardian) Signature/Date: I have read and understand the instructions given to me by my caregivers. Caregiver/RN/Doctor Signature/Date: The above-named patient and/or guardian has received patient instructions on this date. + Original Patient Signature Page (only) stays with chart. Please make copy for patient.
--- NOTE | 2017-06-15 09:15 | GI REPORT ---
Procedure Date: 06/15/2017 8:48 AM Procedure: Upper GI endoscopy Indications: Dysphagia Medicines: Monitored Anesthesia Care Complications: No immediate complications. Estimated Blood Loss: Estimated blood loss: none. Procedure: Pre-Anesthesia Assessment: - Prior to the procedure, a History and Physical was performed, and patient medications and allergies were reviewed. The patient's tolerance of previous anesthesia was also reviewed. The risks and benefits of the procedure and the sedation options and risks were discussed with the patient. All questions were answered, and informed consent was obtained. Prior Anticoagulants: The patient has taken aspirin, last dose was 1 day prior to procedure. ASA Grade Assessment: III - A patient with severe systemic disease. After reviewing the risks and benefits, the patient was deemed in satisfactory condition to undergo the procedure. After obtaining informed consent, the endoscope was passed under direct vision. Throughout the procedure, the patient's blood pressure, pulse, and oxygen saturations were monitored continuously. The scope was introduced through the mouth, and advanced to the second part of duodenum. The upper GI endoscopy was accomplished without difficulty. The patient tolerated the procedure well. Findings: The Z-line was irregular. Biopsies were taken with a cold forceps for histology. Localized mild inflammation characterized by erythema was found in the gastric antrum. Biopsies were taken with a cold forceps for histology. The examined duodenum was normal. Impression: - Z-line irregular. Biopsied. - Gastritis. Biopsied. - Normal examined duodenum. Recommendation: - Resume previous diet. - Continue present medications. - Await pathology results. - Return to primary care physician as previously scheduled. Julio Cesar Tavera DO 06/15/2017 9:15:11 AM This report has been signed electronically. Note Initiated On: 06/15/2017 8:48 AM I attest to the content of the Intraoperative Record and orders documented therein, exceptions below
[2017-06-15 09:38] VITALS: BP 175/82; PULSE 64; O2SAT 95
--- NOTE | 2017-06-15 09:55 | Anesthesiology Progress Note ---
Anesthesia Post Op Note Date & Time Jun 15, 2017 at 09:54 Vital Signs Pain Intensity: 0 Vital Signs Past 12 Hours Date Time Temp Pulse Resp B/P (MAP) Pulse Ox O2 Delivery O2 Flow Rate FiO2 06/15/17 09:38 64 20 175/82 (113) 95 Room Air 06/15/17 09:23 67 20 156/85 (108) 99 Room Air 06/15/17 09:09 69 14 153/80 (104) 98 Oxymask 5 06/15/17 08:37 36.3 66 24 145/68 (93) 95 Room Air Notes Mental Status: alert / awake / arousable, participated in evaluation Pt Amnestic to Procedure: Yes Nausea / Vomiting: adequately controlled Pain: adequately controlled Airway Patency, RR, SpO2: stable & adequate BP & HR: stable & adequate Hydration State: stable & adequate Anesthetic Complications: no major complications apparent
== END | disposition home or self-care (01) ==
LOC: C.GI 08:05
PROVIDERS: ATTEND Internal Medicine
DX: K29.50 Unspecified chronic gastritis without bleeding (principal); R13.10 Dysphagia, unspecified; I10 Essential (primary) hypertension; E11.9 Type 2 diabetes mellitus without complications; G47.30 Sleep apnea, unspecified; K21.9 Gastro-esophageal reflux disease without esophagitis; E07.9 Disorder of thyroid, unspecified; F41.9 Anxiety disorder, unspecified; M19.90 Unspecified osteoarthritis, unspecified site; Z79.4 Long term (current) use of insulin; Z79.82 Long term (current) use of aspirin; Z79.899 Other long term (current) drug therapy

== ENCOUNTER → 2017-07-04 | Outpatient (CLI) | payer BC ==
[~2017-07-04] MED LIST changes: -FENTANYL CITRATE INJ 50 MCG/1 ML 2 ML VIAL ONE; -HYDR-5688 PO; -LIDOCAINE HCL 2% 2 ML VIAL (20MG/ML) ONE; -PROPOFOL IV EMULSION 10 MG/ML 20 ML VIAL IV ONE; -SODIUM CHLORIDE 0.9% 500ML 500 ML IV ONE
== END | disposition home or self-care (01) ==
LOC: C.LABBFT 11:37
PROVIDERS: ATTEND Nurse Practitioner
DX: E03.9 Hypothyroidism, unspecified (principal)

== ENCOUNTER → 2017-08-11 | Outpatient (CLI) | payer BC ==
[2017-08-11 12:43] LABS: BASO % 0.6 %; BASO ABS # 0.04 K/uL (0-0.2); EOS % 3.2 %; HEMATOCRIT 37.6 % (42-52); HEMOGLOBIN 12.3 g/dL (14.0-18.0); IG# 0.01 K/uL (0.00-0.02); LYMPH % 16.2 %; LYMPH ABS # 1.01 K/uL (1.2-3.4); MEAN CELL VOLUME 97.9 fL (80-100); MEAN CORPUSCULAR HGB CONC 32.7 g/dl (32-36); MEAN PLATELET VOLUME 10.4 fL (7.4-10.4); MONO % 9.8 %; MONO ABS # 0.61 K/uL (0.11-0.59); NEUT ABS # 4.37 K/uL (1.4-6.5); PLATELET COUNT 177 K/uL (130-400); RED CELL DISTRIBUTION WIDTH CV 15.9 % (11.5-14.5); RED CELL DISTRIBUTION WIDTH SD 56.9 fL (36.4-46.3); WHITE BLOOD COUNT 6.24 K/uL (4.8-10.8)
[2017-08-11 13:04] LABS: HEMOGLOBIN A1C 7.4 % (4.5-5.6)
[2017-08-11 13:15] LABS: ALBUMIN 3.8 gm/dl (3.4-5.0); ALT/SGPT 60 U/L (12-78); BLOOD UREA NITROGEN 30 mg/dl (7-18); CALCIUM 9.8 mg/dl (8.5-10.1); CARBON DIOXIDE 27 mmol/L (21-32); CHOLESTEROL 141 mg/dl (0-200); CREATININE 1.27 mg/dl (0.60-1.40); GLUCOSE 125 mg/dl (70-99); POTASSIUM 4.5 mmol/L (3.5-5.1); SODIUM 136 mmol/L (136-145)
[2017-08-11 13:19] LABS: ALKALINE PHOSPHATASE 71 U/L (45-117); AST/SGOT 53 U/L (15-37); LDL CHOLESTEROL CALCULATED 56 mg/dl; TOTAL PROTEIN 7.7 gm/dl (6.4-8.2)
== END | disposition home or self-care (01) ==
LOC: C.LABBFT 08:25
PROVIDERS: ATTEND Internal Medicine
DX: N28.9 Disorder of kidney and ureter, unspecified (principal); D64.9 Anemia, unspecified; E78.5 Hyperlipidemia, unspecified; E11.42 Type 2 diabetes mellitus with diabetic polyneuropathy

== ENCOUNTER → 2017-08-30 | Day surgery (SDC) | payer BC ==
[2017-08-11 15:08] VITALS: BMI 41.0
[~2017-08-30] VITALS: Ht 185.4 cm; Wt 140.9 kg
[~2017-08-30] MED LIST changes: +LIDOCAINE HCL 2% 2 ML VIAL (20MG/ML) ONE; +PROPOFOL IV EMULSION 10 MG/ML 20 ML VIAL IV ONE; +SODIUM CHLORIDE 0.9% 500ML 500 ML IV ONE
[2017-08-30 08:14] VITALS: Ht 185.4 cm; Wt 140.9 kg
--- NOTE | 2017-08-30 08:40 | Endo History and Physical ---
History & Physical Date of Service: Aug 30, 2017. Chief Complaint: anemia Referring Physician: Dr. Desir History of Present Illness 66 yo CM who presents for colonoscopy secondary to anemia. Past Medical History Diabetes, Arthritis, Anxiety, Reflux, Sleep Apnea, Hypertension, Thyroid Disease Past Surgical History Hx Cardiac Surgery: No Hx Internal Defibrillator: No Hx Pacemaker: No Hx Abdominal Surgery: No Hx of Implantable Prosthesis: No Hx Post-Op Nausea and Vomiting: No Hx Cancer Surgery: Yes (FACE SKIN EXICISION) Hx Thoracic Surgery: No Hx Orthopedic: Yes (RT/LEFT KNEE SX, RT ARM MUSCLE REPAIR) Hx Urinary Tract Surgery: No Family History None Social History Smoking Status: Never Smoker Hx Substance Use: No Hx Alcohol Use: No Allergies Coded Allergies: Niacin (Verified Allergy, Unknown, ULCERS, 08/30/17) Current Medications Reported Home Medications Medications Dose Route/Sig Max Daily Dose Days Date Category Dose Instructions Vitamin E 400 Iu (Vitamin E) 400 Unit Cap 400 Inter.unit PO DAILY 06/02/17 Reported Vitamin D (Cholecalciferol) 2,000 Unit Cap 2 Cap PO DAILY 06/02/17 Reported Zocor (Simvastatin) 20 Mg Tab 20 Mg PO QPM 06/02/17 Reported Saw [place] (Misc Natural Products) 1 Cap Cap 1 Cap PO DAILY 06/02/17 Reported Junior-E (S-Adenosylmethionine) 200 Mg Tab 4 Tab PO DAILY 06/02/17 Reported Prilosec (Omeprazole) 40 Mg Cap 40 Mg PO QAM 06/02/17 Reported Novolog Flexpen (Insulin Aspart) 100 Units/Ml Inj 1 Dose SC TID 06/02/17 Reported PER SLIDING SCALE. Multi Vitamin (Multiple Vitamin) 1 Tab Tab 1 Tab PO DAILY 06/02/17 Reported Glucophage (Metformin Hcl) 500 Mg Tab 2 Tab PO BID 06/02/17 Reported Mag-Ox (Magnesium Oxide) 400 Mg Tab 2 Cap PO DAILY 06/02/17 Reported Levothyroxine Sodium 200 Mcg Tab 1 Tab PO QAM 06/02/17 Reported Levothyroxine Sodium 50 Mcg Tab 1 Tab PO QAM 06/02/17 Reported Levemir (Insulin Detemir) 100 Units/Ml Inj 100 Unit SC BID 06/02/17 Reported Irbesartan 150 Mg Tab 1 Tab PO QAM 06/02/17 Reported Hctz (Hydrochlorothiazide) 25 Mg Tab 0.5 Tab PO QAM 06/02/17 Reported Green Tea Extract (Green Tea (Camillia Sinensis)) 90 % Liq 1 Dose PO DIRECTED 06/02/17 Reported Glucosamine Chondroitin (Etinzkwhysi-Npdqxlwpmdg-Icy C-) 1 Tab Tab 1 Tab PO DAILY 06/02/17 Reported [Ginkoba] 60 Mg PO DAILY 06/02/17 Reported Neurontin (Gabapentin) 300 Mg Cap 300 Mg PO TID 06/02/17 Reported Prozac (Fluoxetine HCl) 10 Mg Cap 10 Mg PO QAM 06/02/17 Reported Cod Liver Oil 1 Cap Cap 3 Mg PO DAILY 06/02/17 Reported Vitamin B12 (Cyanocobalamin) 1,000 Mcg Tab 1 Tab PO DAILY 06/02/17 Reported Victoza (Liraglutide) 18 Mg/3 Ml Inj 1.8 Mg SC QAM 06/02/17 Reported Aspirin Ec (Aspirin) 81 Mg Tab 81 Mg PO QAM 04/28/13 Reported Zyloprim (Allopurinol) 300 Mg Tab 300 Mg PO QAM 04/28/13 Reported Vital Signs Weight (Kilograms): 140.91 Height (Feet): 6 Height (Inches): 1 Date Time Temp Pulse Resp B/P (MAP) Pulse Ox O2 Delivery O2 Flow Rate FiO2 08/30/17 08:21 36.3 67 20 133/62 (85) 94 Room Air Physical Exam General Appearance: WD/WN, no apparent distress Respiratory/Chest: Auscultation: breath sounds normal Cardiovascular: Heart Auscultation: RRR Abdomen: Bowel Sounds: normal Inspection & Palpation: soft, non-distended, no tenderness, guarding & rebound Assessment and Plan Assessment: 66 yo CM who presents for colonoscopy secondary to anemia. Plan: Proceed with colonoscopy.
--- NOTE | 2017-08-30 09:24 | Discharge Instructions ---
Endoscopy Patient Instructions Date / Procedure(s) Performed Aug 30, 2017. Colonoscopy Allergy Information Coded Allergies: Niacin (Verified Allergy, Unknown, ULCERS, 08/30/17) Discharge Date / Findings Aug 30, 2017. Colon polyps Diverticulosis Internal hemorrhoids Medication Instructions Stopped Medication(s): Aspirin Restart Stopped Medication(s): OK to resume all medications today as prescribed Reported Home Medications Medications Dose Route/Sig Max Daily Dose Days Date Category Dose Instructions Vitamin E 400 Iu (Vitamin E) 400 Unit Cap 400 Inter.unit PO DAILY 06/02/17 Reported Vitamin D (Cholecalciferol) 2,000 Unit Cap 2 Cap PO DAILY 06/02/17 Reported Zocor (Simvastatin) 20 Mg Tab 20 Mg PO QPM 06/02/17 Reported Saw [place] (Misc Natural Products) 1 Cap Cap 1 Cap PO DAILY 06/02/17 Reported Junior-E (S-Adenosylmethionine) 200 Mg Tab 4 Tab PO DAILY 06/02/17 Reported Prilosec (Omeprazole) 40 Mg Cap 40 Mg PO QAM 06/02/17 Reported Novolog Flexpen (Insulin Aspart) 100 Units/Ml Inj 1 Dose SC TID 06/02/17 Reported PER SLIDING SCALE. Multi Vitamin (Multiple Vitamin) 1 Tab Tab 1 Tab PO DAILY 06/02/17 Reported Glucophage (Metformin Hcl) 500 Mg Tab 2 Tab PO BID 06/02/17 Reported Mag-Ox (Magnesium Oxide) 400 Mg Tab 2 Cap PO DAILY 06/02/17 Reported Levothyroxine Sodium 200 Mcg Tab 1 Tab PO QAM 06/02/17 Reported Levothyroxine Sodium 50 Mcg Tab 1 Tab PO QAM 06/02/17 Reported Levemir (Insulin Detemir) 100 Units/Ml Inj 100 Unit SC BID 06/02/17 Reported Irbesartan 150 Mg Tab 1 Tab PO QAM 06/02/17 Reported Hctz (Hydrochlorothiazide) 25 Mg Tab 0.5 Tab PO QAM 06/02/17 Reported Green Tea Extract (Green Tea (Camillia Sinensis)) 90 % Liq 1 Dose PO DIRECTED 06/02/17 Reported Glucosamine Chondroitin (Lcqcjrrrult-Udwrucdobqa-Fiu C-) 1 Tab Tab 1 Tab PO DAILY 06/02/17 Reported [Ginkoba] 60 Mg PO DAILY 06/02/17 Reported Neurontin (Gabapentin) 300 Mg Cap 300 Mg PO TID 06/02/17 Reported Prozac (Fluoxetine HCl) 10 Mg Cap 10 Mg PO QAM 06/02/17 Reported Cod Liver Oil 1 Cap Cap 3 Mg PO DAILY 06/02/17 Reported Vitamin B12 (Cyanocobalamin) 1,000 Mcg Tab 1 Tab PO DAILY 06/02/17 Reported Victoza (Liraglutide) 18 Mg/3 Ml Inj 1.8 Mg SC QAM 06/02/17 Reported Aspirin Ec (Aspirin) 81 Mg Tab 81 Mg PO QAM 04/28/13 Reported Zyloprim (Allopurinol) 300 Mg Tab 300 Mg PO QAM 04/28/13 Reported Provider Instructions Activity Restrictions - No exercising or heavy lifting for 24 hours. - Do not drink alcohol the day of the procedure. - Do not drive a car or operate machinery until the day after the procedure. - Do not make any important decisions or sign important papers in 24 hours after the procedure. Following Day: - Return to full activity which may include returning to work/school. Diet Start your diet with liquids and light foods (jello, soup, juice, toast). Then eat your usual diet if not nauseated. Treatment For Common After Affects For mild abdominal pain, bloating, or excessive gas: - Rest - Eat lightly - Lie on right side Follow-Up Information Follow-up with Dr. Desir as scheduled Anesthesia Information What You Should Know You have had a procedure that required some medicine to reduce anxiety and discomfort. This treatment is called moderate sedation. After receiving the treatment, you may be sleepy, but you will be able to breathe on your own. The effects of the treatment may last for several hours. Follow these instructions along with Activity/Diet recommendations noted above: * Do NOT do anything where dizziness or clumsiness would be dangerous. * Rest quietly at home today, then you can be up and about tomorrow. * Have a responsible person stay with you the rest of today. * You may have had an I.V. today. If so, you may take the dressing off later today. Recommendations Call your doctor if: * Trouble breathing * Continuous vomiting for more than 24 hours * Temperature above 101 degrees * Severe abdominal pain or bloating * Pain not relieved by pain medicine ordered * There is increased drainage or redness from any incision * A large amount of rectal bleeding greater than 2-3 tablespoons. (If you had a polyp/s removed or have hemorrhoids, a small amount of blood - from the rectum is to be expected.) * You have any unanswered questions or concerns. IN THE EVENT OF A SERIOUS EMERGENCY, GO TO THE NEAREST EMERGENCY ROOM Your discharge instructions were prepared by provider Julio Cesar Tavera. Patient Instructions Signature Page Paul Urbina Patient (or Guardian) Signature/Date: I have read and understand the instructions given to me by my caregivers. Caregiver/RN/Doctor Signature/Date: The above-named patient and/or guardian has received patient instructions on this date. + Original Patient Signature Page (only) stays with chart. Please make copy for patient.
--- NOTE | 2017-08-30 09:34 | GI REPORT ---
Procedure Date: 08/30/2017 8:14 AM THIS REPORT HAS BEEN AMENDED Addendum Number: 1 Addendum Date: 08/30/2017 9:56:20 AM Indication for Procedure was Anemia Procedure: Colonoscopy Indications: Rectal bleeding Medicines: Monitored Anesthesia Care Complications: No immediate complications. Estimated Blood Loss: Estimated blood loss: none. Procedure: Pre-Anesthesia Assessment: - Prior to the procedure, a History and Physical was performed, and patient medications and allergies were reviewed. The patient's tolerance of previous anesthesia was also reviewed. The risks and benefits of the procedure and the sedation options and risks were discussed with the patient. All questions were answered, and informed consent was obtained. Prior Anticoagulants: The patient has taken aspirin, last dose was 1 day prior to procedure. ASA Grade Assessment: III - A patient with severe systemic disease. After reviewing the risks and benefits, the patient was deemed in satisfactory condition to undergo the procedure. After I obtained informed consent, the scope was passed under direct vision. Throughout the procedure, the patient's blood pressure, pulse, and oxygen saturations were monitored continuously. The scope was introduced through the anus and advanced to the terminal ileum. The colonoscopy was performed without difficulty. The patient tolerated the procedure well. The quality of the bowel preparation was good. The terminal ileum, ileocecal valve, appendiceal orifice, and rectum were photographed. Findings: The perianal and digital rectal examinations were normal. Five sessile polyps were found in the rectum and ascending colon. The polyps were 5 to 12 mm in size. These polyps were removed with a hot snare. Resection and retrieval were complete. Scattered small-mouthed diverticula were found in the entire colon. Non-bleeding internal hemorrhoids were found during retroflexion. The hemorrhoids were small. Impression: - Five 5 to 12 mm polyps in the rectum and in the ascending colon, removed with a hot snare. Resected and retrieved. - Diverticulosis in the entire examined colon. - Non-bleeding internal hemorrhoids. Recommendation: - Resume previous diet. - Continue present medications. - Repeat colonoscopy for surveillance based on pathology results. - Return to primary care physician as previously scheduled. Julio Cesar Tavera DO 08/30/2017 9:33:43 AM This report has been signed electronically. Note Initiated On: 08/30/2017 8:14 AM I attest to the content of the Intraoperative Record and orders documented therein, exceptions below Julio Cesar Tavera 08/30/2017 9:56:37 AM This report has been signed electronically.
[2017-08-30 09:59] VITALS: BP 157/75; PULSE 62; O2SAT 96
--- NOTE | 2017-08-30 10:19 | Anesthesiology Progress Note ---
Anesthesia Post Op Note Date & Time Aug 30, 2017 at 10:19 Vital Signs Pain Intensity: 0 Vital Signs Past 12 Hours Date Time Temp Pulse Resp B/P (MAP) Pulse Ox O2 Delivery O2 Flow Rate FiO2 08/30/17 09:59 62 20 157/75 (102) 96 Room Air 08/30/17 09:45 63 20 140/73 (95) 97 Room Air 08/30/17 09:27 65 18 122/53 (76) 95 Room Air 08/30/17 08:21 36.3 67 20 133/62 (85) 94 Room Air Notes Mental Status: alert / awake / arousable, participated in evaluation Pt Amnestic to Procedure: Yes Nausea / Vomiting: adequately controlled Pain: adequately controlled Airway Patency, RR, SpO2: stable & adequate BP & HR: stable & adequate Hydration State: stable & adequate Anesthetic Complications: no major complications apparent
== END | disposition home or self-care (01) ==
LOC: C.GI 06:52
PROVIDERS: ATTEND Internal Medicine
DX: K62.5 Hemorrhage of anus and rectum (principal); K62.1 Rectal polyp; D12.2 Benign neoplasm of ascending colon; K57.30 Diverticulosis of large intestine without perforation or abscess without bleeding; K64.8 Other hemorrhoids; E11.9 Type 2 diabetes mellitus without complications; I10 Essential (primary) hypertension; G47.33 Obstructive sleep apnea (adult) (pediatric); E66.01 Morbid (severe) obesity due to excess calories; Z88.1 Allergy status to other antibiotic agents; Z98.890 Other specified postprocedural states; Z79.4 Long term (current) use of insulin; Z79.899 Other long term (current) drug therapy

== ENCOUNTER 2017-12-02 09:06 | Emergency (ER) | payer BC ==
[~2017-12-02 09:06] MED LIST changes: -LIDOCAINE HCL 2% 2 ML VIAL (20MG/ML) ONE; -PROPOFOL IV EMULSION 10 MG/ML 20 ML VIAL IV ONE; -SODIUM CHLORIDE 0.9% 500ML 500 ML IV ONE
[2017-12-02 09:08] VITALS: PULSE 0
--- NOTE | 2017-12-02 09:42 | EMERGENCY ROOM VISIT NOTE ---
History Report prepared by Sangeetha: Ghulam Watson Under the Supervision of: Dr. Kip Agee D.O. First contact with patient: 09:10 Chief Complaint: CARDIAC ARREST Stated Complaint: CARDIAC ARREST History of Present Illness The patient is a 67 year old male who presents to the Emergency Room via ALS in full cardiac arrest. Per EMS the patient went into witnessed cardiac arrest this morning. The patient's phoned for EMS at 0754. She was instructed on how to perform CPR and began immediately. The states that she works overnight, and found the patient behaving unusually this morning. She was unable to make out what he was saying, and could not understand any complaints he was making. The patient has a history of hypertension, but no cardiac disease. EMS administered 8 dosages of epinephrine and intubated the patient prior to arrival. CPR was administered continually via NIYA. Source of History: spouse/significant other Onset: 0754 this morning, 1 hour and 13 minutes ago Position: chest Quality: other (Cardiac arrest ) Timing: constant Note: found patient in altered mental status this morning Review of Systems See HPI for pertinent positives & negatives. A total of 10 systems reviewed and were otherwise negative. Past Medical & Surgical Medical Problems: (1) Benign hypertension (2) Diabetes mellitus (3) ENCOUNTER FOR ANTINEOPLASTIC CHEMOTHERAPY (4) History of malignant lymphoma Family History FH: cancer FH: diabetes mellitus FH: hypertension Social History Smoking Status: Never Smoker Alcohol Use: none Drug Use: none Marital Status: Housing Status: lives with family Occupation Status: retired Current/Historical Medications Scheduled Allopurinol (Zyloprim), 300 MG PO QAM Aspirin (Aspirin Ec), 81 MG PO QAM Cholecalciferol (Vitamin D), 2 CAP PO DAILY Cod Liver Oil (Cod Liver Oil), 3 MG PO DAILY Cyanocobalamin (Vitamin B12), 1 TAB PO DAILY Fluoxetine (Prozac), 10 MG PO QAM Gabapentin (Neurontin), 300 MG PO TID Tsumrzibyud-Jbuzalapitl-Yeo C- (Glucosamine Chondroitin), 1 TAB PO DAILY Green Tea (Camillia Sinensis) (Green Tea Extract), 1 DOSE PO DIRECTED Hydrochlorothiazide (Hctz), 0.5 TAB PO QAM Insulin Aspart (Novolog Flexpen), 1 DOSE SC TID Insulin Detemir (Levemir), 100 UNIT SC BID Irbesartan (Irbesartan), 1 TAB PO QAM Levothyroxine Sodium (Levothyroxine Sodium), 1 TAB PO QAM Levothyroxine Sodium (Levothyroxine Sodium), 1 TAB PO QAM Liraglutide (Victoza), 1.8 MG SC QAM Magnesium Oxide (Mag-Ox), 2 CAP PO DAILY Metformin Hcl (Glucophage), 2 TAB PO BID Misc Natural Products ([place]), 1 CAP PO DAILY Multiple Vitamin (Multi Vitamin), 1 TAB PO DAILY Omeprazole (Prilosec), 40 MG PO QAM S-Adenosylmethionine (Junior-E), 4 TAB PO DAILY Simvastatin (Zocor), 20 MG PO QPM Vitamin E (Vitamin E 400 Iu), 400 INTER.UNIT PO DAILY [Ginkoba], 60 MG PO DAILY Allergies Coded Allergies: Niacin (Verified Allergy, Unknown, ULCERS, 12/02/17) Physical Exam Vital Signs Date Time Temp Pulse Resp B/P (MAP) Pulse Ox O2 Delivery O2 Flow Rate FiO2 12/02/17 09:08 0 0 Physical Exam GENERAL: Patient is in full cardiac arrest. Currently on NIYA device. No spontaneous respirations noted. EYES: Pupils dilated, non-reactive to light EARS, NOSE, MOUTH AND THROAT: The nose is without any evidence of any deformity. Mucous membranes are moist tongue is midline NECK: supple. RESPIRATORY: Diffuse rales noted. Lung sounds only present with bagging. CARDIOVASCULAR: Absent hear sounds noted. GASTROINTESTINAL: The abdomen is moderately distended, but soft. MUSCULOSKELETAL/EXTREMITIES: There is no evidence of gross deformity full range of motion is noted in the hips and shoulders SKIN: There is no obvious evidence of any rash. Pedal edema bilaterally. Venous stasis changes noetd. There are no petechiae, pallor or cyanosis noted. NEUROLOGIC: GCS of 3. Intubated. Medical Decision & Procedures ED Course 0754: EMS was called by , CPR was started by . 0907: The patient was evaluated in room B1. A complete history and physical examination were performed. 0910: 1 mg of Epinephrine pushed in department. 0914: 1 mg of Epinephrine pushed in department. 0919: CPR was stopped and time of was called. Medical Decision Patient presents in full cardiac arrest. Nursing notes reviewed. Additional history is obtained from the prehospital personnel. The patient is a 67-year-old male who presented to the emergency department in full cardiac arrest. ACLS protocol was initiated. The patient continued to get chest compressions with the Niya device while he was in the emergency department. The patient did not respond and had no return of spontaneous circulation. I discussed his prognosis with his significant other and she asked us to terminate efforts. Impression Primary Impression: Cardiac arrest Scribe Attestation The scribe's documentation has been prepared under my direction and personally reviewed by me in its entirety. I confirm that the note above accurately reflects all work, treatment, procedures, and medical decision making performed by me. Departure Information Dispostion ([id number]) Referrals Bola Desir M.D. (PCP) Forms WORK / SCHOOL INSTRUCTIONS, HOME CARE DOCUMENTATION FORM, IMPORTANT VISIT INFORMATION Patient Instructions My [facility]
== END 2017-12-02 09:25 | disposition expired ==
LOC: EDBD 09:06 → C.EDB 09:07
DX: I46.9 Cardiac arrest, cause unspecified (principal); R40.2432 Glasgow coma scale score 3-8, at arrival to emergency department; I10 Essential (primary) hypertension; E11.9 Type 2 diabetes mellitus without complications; Z82.49 Family history of ischemic heart disease and other diseases of the circulatory system; Z79.82 Long term (current) use of aspirin; Z79.4 Long term (current) use of insulin; Z79.84 Long term (current) use of oral hypoglycemic drugs; Z79.899 Other long term (current) drug therapy; Z88.8 Allergy status to other drugs, medicaments and biological substances